=== PATIENT | male | born 1965 | race Caucasian/White ===

== ENCOUNTER 2024-05-11 08:51 | Emergency (ER) | payer OTHER, SELFPAY ==
[2024-05-11 08:53] VITALS: BP 147/86
--- NOTE | 2024-05-11 10:00 | ED.GENMED ---
History of Present Illness
General
Chief Complaint: Skin Surface Trauma
Source: patient
Exam Limitations: none
Time Seen by Provider: 05/11/24 09:53
History of Present Illness
History of Present Illness:
58yo right hand dominant male presenting for evaluation of a left palm skin avulsion that was sustained around 4pm yesterday afternoon. Patient was opening an aluminum ladder yesterday when he pinched his skin causing an avulsion. He put liquid
bandage on it and a dressing but the wound was bleeding when he removed the dressing last night. No paresthesias. Unknown last Tdap.
Phy Exam
General Physical Exam
General Presentation: well appearing and no apparent distress
General age: appears stated age
General Skin: warm and dry
General Habitus: normal
General Mental: alert
ENT Exam
ENT Exam: normocephalic
Pulmonary Exam
Pulmonary Exam: no respiratory distress
Musculoskeletal Exam
Musculoskeletal Exam: other (ROM of wrist and fingest intact. No bony tenderness. 2+ radial pulse. )
Skin Exam
Skin Exam: normal color, warm/dry and other (Approx 1cm x 1cm circular area of avulsed skin at the L palm near thenar eminence. No active bleeding. No areas that require suture repair. )
Psychiatric Exam
Psychiatric Exam: normal mood/affect
Course
Orders/Labs/Results
Orders:
Orders
05/11/24 10:00
Tetanus/Diphth/Acelpertussis [Adacel] 0.5 ml IM .ONCE ONE
Vital Signs
Initial and Last Documented VS:
Initial Vital Signs
Temp Pulse Resp BP Pulse Ox
98.0 F 74 20 147/86 100
05/11/24 08:53 05/11/24 08:53 05/11/24 08:53 05/11/24 08:53 05/11/24 08:53
Last Documented Vital Signs
Temp Pulse Resp BP Pulse Ox
98.0 F 74 20 147/86 100
05/11/24 08:53 05/11/24 08:53 05/11/24 08:53 05/11/24 08:53 05/11/24 08:53
MDM/Problems Addressed
Differential Diagnosis Includes:
58yoM here with a L hand skin avulsion after getting his hand stuck in a ladder yesterday afternoon. There is a 1cm x 1cm circular area of avulsed skin on the L palm. No area that requires suture repair. No active bleeding. Wound was irrigated with
saline. Topical antibiotic cream and dressing applied. Tdap updated. Home wound care discussed and supplies provided. Advised return to the ED with any signs of infection. Patient discharged in stable condition.
*Critical Care Note
Total Time (30-74mins, 75-104mins- exclusive of procedures): Not Applicable
ED Attending Note
-
Portions of this chart may have been created with voice recognition software.� Occasional wrong word or��sound alike� substitutions may have occurred due to the inherent limitations of voice recognition software.
Discharge Plan
Departure
Patient Disposition: Home (Routine Discharge)
Date of Disposition: 05/11/24
Time of Disposition: 10:03
Patient with high blood pressure during this ER visit?: Yes
Discharge Problem:
Avulsion of skin of left hand
Instructions: Taking care of cuts, scrapes, and puncture wounds
Referrals:
Lee Ba DO [Family Provider] -
Activity Restrictions/Additional Instructions:
Change dressings daily and keep wound clean and dry.
Return to the ER with any signs of infection.
Interventions
Interventions:
*Risk Screen - Suicide Last Done: 05/11/24 08:53
ED-Skin Assessment Last Done: 05/11/24 09:39
Discharge Date and Time
Print Language: SAMI
[2024-05-11] MEDS: ADACEL 0.5 ML IM (10:27)
== END 2024-05-11 10:33 | disposition home or self-care (01) ==
LOC: EMR 08:51
PROVIDERS: EMERGENCY PHYSICIAN Emergency Medicine; FAMILY PHYSICIAN Family Medicine
DX: S61.402A Unspecified open wound of left hand, initial encounter (principal); W23.0XXA Caught, crushed, jammed, or pinched between moving objects, initial encounter; Z23 Encounter for immunization
CPT/HCPCS: 90471; 99282; 90715